=== PATIENT | female | born 1950 | race Caucasian/White ===

== ENCOUNTER 2019-11-16 11:44 | Emergency (ER) | payer MEDICARE, BC ==
--- NOTE | 2019-11-16 13:37 | CR ---
Ankle Min 3V Rt CLINICAL HISTORY: Twisted ankle FINDINGS: The soft tissues are swollen generally. No acute fracture or dislocation is noted. Ankle mortise is mildly narrowed which is felt to be degenerative. There is some minimal periarticular spurring Impression: Soft tissue swelling Osteophytic change No fracture seen
--- NOTE | 2019-11-16 14:03 | EDM.PDOC ---
ED HPI GENERAL MEDICAL PROBLEM - General Chief Complaint: Lower Extremity Injury/Pain Stated Complaint: RT ANKLE INJURY/ FALL Time Seen by Provider: 11/16/19 13:00 - History of Present Illness INITIAL COMMENTS - FREE TEXT/NARRATIVE: Patient presents emergency department after she slipped and fell off a ladder and has some pain in her right ankle where she twisted it. She has some mild swelling over her lateral malleolus but no neurovascular deficits and no other injuries other than a few abrasions on her forearms. Right Ankle Pain Score (Numeric/FACES): 5 - Related Data Allergies Allergy/AdvReac Type Severity Reaction Status Date / Time acetaminophen [From Vicodin] Allergy Intermediate Other Verified 11/16/19 12:42 atorvastatin Allergy Intermediate Other Verified 11/16/19 12:42 hydrocodone [From Vicodin] Allergy Intermediate Other Verified 11/16/19 12:42 Home Meds: Home Meds Acetaminophen 650 mg PO ASDIRECTED 11/16/19 [History] Fish Oil/DHA/EPA [Fish Oil 1,200 MG] 1 each PO BEDTIME 11/16/19 [History] Ibuprofen 400 mg PO ASDIRECTED 11/16/19 [History] Levothyroxine [Synthroid] 100 mcg PO ACBREAKFAST 11/16/19 [History] Simvastatin [Zocor] 20 mg PO BEDTIME 11/16/19 [History] lisinopriL [Lisinopril] 10 mg PO DAILY 11/16/19 [History] Past Medical History Cardiovascular History: Reports: Arrhythmia, High Cholesterol, Hypertension Gastrointestinal History: Reports: Cholelithiasis Endocrine/Metabolic History: Reports: Hypothyroidism - Past Surgical History Cardiovascular Surgical History: Reports: None GI Surgical History: Reports: Cholecystectomy Female Surgical History: Reports: Hysterectomy Social & Family History - Tobacco Use Smoking Status *Q: Never Smoker - Caffeine Use Caffeine Use: Reports: Coffee, Tea - Recreational Drug Use Recreational Drug Use: No Review of Systems - Review of Systems Review Of Systems: Comprehensive ROS is negative, except as noted in HPI. ED EXAM, GENERAL - Physical Exam Exam: See Below General Appearance: Alert Head: Atraumatic Neck: Normal Inspection Cardiovascular: Normal Peripheral Pulses Back Exam: Normal Inspection Extremities: Normal Inspection, Other (See HPI, no deformity, no neurovascular deficits, no foot tenderness.) Skin Exam: Warm, Dry, Intact Course - Vital Signs Text/Narrative:: Patient's x-rays are negative, she has an ankle sprain and we will provide her a splint for this Last Recorded V/S: Last Vital Signs Temp 96.8 F L 11/16/19 12:58 Pulse 46 L 11/16/19 12:58 Resp 16 11/16/19 12:58 BP 158/49 H 11/16/19 12:58 Pulse Ox 97 11/16/19 12:58 Departure - Departure Time of Disposition: 14:03 Disposition: Home, Self-Care 01 Clinical Impression: Ankle sprain - Discharge Information Instructions: Ankle Sprain, Phase I Rehab-SportsMed, Ankle Sprain Referrals: PCP,None [Primary Care Provider] - 1 Week Sepsis Event Note (ED) - Evaluation Sepsis Screening Result: No Definite Risk - Focused Exam Vital Signs: Vital Signs Temp Pulse Resp BP Pulse Ox 11/16/19 12:58 96.8 F L 46 L 16 158/49 H 97
== END 2019-11-16 14:27 | disposition home or self-care (01) ==
LOC: JP.ED 11:44
DX: S93.401A Sprain of unspecified ligament of right ankle, initial encounter (principal); E78.00 Pure hypercholesterolemia, unspecified; I10 Essential (primary) hypertension; E03.9 Hypothyroidism, unspecified; Z79.899 Other long term (current) drug therapy; Z88.5 Allergy status to narcotic agent; Z88.6 Allergy status to analgesic agent; W11.XXXA Fall on and from ladder, initial encounter
CPT/HCPCS: 73610-26-RT; 73610-RT; 99283-25